=== PATIENT | male | born 1980 | race African-American/Black ===

== ENCOUNTER 2016-04-12 20:39 | Emergency (ER) | payer OTHER ==
[~2016-04-12] VITALS: Ht 162.6 cm; Wt 70.9 kg
[~2016-04-12 20:39] MED LIST: Cipro PO; Keflex PO; Vicodin,Norco 5/325 PO
[2016-04-12] MEDS ORDERED: PERCOCET 5/31 TABLET PO (22:46)
[2016-04-12] MEDS ORDERED: MOTRIN800 MG PO (22:56)
[2016-04-12 23:21] VITALS: BP 120/93
== END 2016-04-12 23:21 | disposition home or self-care (01) ==
LOC: EME 20:39 → EXP 20:39
PROC: 2W3CX1Z Immobilization of Right Lower Arm using Splint (ICD-10-PCS; principal; 2016-04-12)
DX: S52.501A Unspecified fracture of the lower end of right radius, initial encounter for closed fracture (principal); S52.611A Displaced fracture of right ulna styloid process, initial encounter for closed fracture; W19.XXXA Unspecified fall, initial encounter; Y93.67 Activity, basketball
CPT/HCPCS: 73110; 99281; 99284